=== PATIENT | female | born 1985 | race American Indian/Alaskan Native ===

== ENCOUNTER 2017-04-25 00:57 | Emergency (ER) | payer MEDICAID ==
[2017-04-25 02:11] LABS: Anion Gap 17 mmol/L; BUN/Creatinine Ratio 22; Blood Urea Nitrogen 13 mg/dL (7-17); Calcium 8.7 mg/dL (8.4-10.2); Carbon Dioxide 23 mmol/L (22-30); Chloride 103.7 mmol/L (98-107); Glucose 92 mg/dL (65-100); Sodium 140 mmol/L (137-145)
[2017-04-25 02:21] LABS: Basophils % (Auto) 0.6 % (0.0-1.8); Eosinophils % (Auto) 4.2 % (0.0-4.3); Hematocrit 41.8 % (30.3-42.9); Hemoglobin 13.7 gm/dl (10.1-14.3); Mean Corpuscular HGB Conc 33 % (30-34); Mean Corpuscular Hemoglobin 26 pg (28-32); Mean Corpuscular Volume 80 fl (79-97); Platelet Count 249 K/mm3 (140-440); Red Blood Count 5.25 M/mm3 (3.65-5.03); Red Cell Distribution Width 15.2 % (13.2-15.2); White Blood Count 11.6 K/mm3 (4.5-11.0)
--- NOTE | 2017-04-25 04:15 | XRay Report ---
FINAL REPORT PROCEDURE: XR CHEST ROUTINE 2V TECHNIQUE: PA and lateral chest radiographs were obtained. CPT 89915 HISTORY: cough, JJ, Consent signed COMPARISON: No prior studies are available for comparison. FINDINGS: Heart: Normal. Mediastinum/Vessels: Normal. Lungs/Pleural space: Normal. Bony thorax: No acute osseous abnormality. Other: IMPRESSION: Normal examination.
[2017-04-25] MEDS ORDERED: PHENERGAN/CODEINE 6.25-10 MG/5ML PO ONE (04:52)
[2017-04-25] MEDS ORDERED: TORADOL IM ONE (04:52)
[2017-04-25] MEDS ORDERED: DUONEB *Not for PRN Use IH ONE (05:25)
--- NOTE | 2017-04-25 06:38 | Emergency Department Report ---
Minor Respiratory - HPI Chief Complaint: Upper Respiratory Infection Stated Complaint: SOB/CP ED Review of Systems ROS: Stated complaint: SOB/CP Other details as noted in HPI ED Past Medical Hx - Past Medical History Previous Medical History?: Yes Hx Hypertension: No Hx Congestive Heart Failure: No Hx Diabetes: No Hx Deep Vein Thrombosis: No Hx Renal Disease: No Hx Sickle Cell Disease: No Hx Seizures: No Hx Asthma: No Hx COPD: No Hx HIV: No Additional medical history: Hypoglycemia - Surgical History Past Surgical History?: No Additional Surgical History: Obesity - Social History Smoking Status: Current Every Day Smoker Substance Use Type: Alcohol - Medications Home Medications: Home Medications Medication Instructions Recorded Confirmed Last Taken Type Penicillin Vk [Veetids TAB] 250 mg PO QID #40 tablet 10/14/14 Unknown Rx ALBUTEROL Inhaler [ProAir HFA 2 puff IH QID PRN #1 inhalation 08/01/15 Unknown Rx Inhaler] Acetamin/Codeine 120-12Mg/5 ml 5 ml PO TID PRN #30 ml 08/01/15 Unknown Rx [Tylenol/Codeine] Azithromycin [Zithromax Z-MARISOL] 250 mg PO DAILY #6 tab 08/01/15 Unknown Rx Prednisone [predniSONE 10 mg 10 mg PO .TAPER #1 tab.ds.pk 08/01/15 Unknown Rx (6-Day Pack, 21 Tabs)] ALBUTEROL Inhaler [Proair] 1 puff IH TID PRN #1 inha 04/25/17 Unknown Rx Azithromycin [Zithromax Z-MARISOL] 250 mg PO QAM #1 pack 04/25/17 Unknown Rx methylPREDNISolone [Medrol] 4 mg PO QAM #1 tab.ds.pk 04/25/17 Unknown Rx Minor Respiratory Exam - Exam General: Vital signs noted. No distress. Alert and acting appropriately. Neurologic: Alert and oriented, no deficits. Musculoskeletal: Unremarkable. ED Course Vital Signs 04/25/17 04/25/17 00:57 05:32 Temperature 98.4 F Pulse Rate 75 Respiratory 20 18 Rate Blood Pressure 129/87 [Right] O2 Sat by Pulse 99 Oximetry ED Medical Decision Making - Lab Data Result diagrams: 04/25/17 01:32 04/25/17 01:32 Critical care attestation.: If time is entered above; I have spent that time in minutes in the direct care of this critically ill patient, excluding procedure time. ED Disposition Disposition: DC-01 TO HOME OR SELFCARE Condition: Stable Instructions: Acute Bronchitis (ED) Prescriptions: ALBUTEROL Inhaler [Proair] 1 puff IH TID PRN #1 inha PRN Reason: Shortness Of Breath Azithromycin [Zithromax Z-MARISOL] 250 mg PO QAM #1 pack methylPREDNISolone [Medrol] 4 mg PO QAM #1 tab.ds.pk Referrals: PRIMARY CARE, [Primary Care Provider] - 3-5 Days Forms: Work/School Release Form(ED)
[2017-04-25 06:43] VITALS: BP 121/75
== END 2017-04-25 06:42 | disposition home or self-care (01) ==
LOC: ED 00:57
DX: J06.9 Acute upper respiratory infection, unspecified (principal); F17.200 Nicotine dependence, unspecified, uncomplicated
CPT/HCPCS: 36415; 71020; 80048; 84484; 84703; 85025; 93005; 93010; 96372; 99284; J1885

== ENCOUNTER 2018-08-25 03:19 | Emergency (ER) | payer MEDICAID ==
[2018-08-25 03:30] VITALS: BP 142/99
[2018-08-25] MEDS ORDERED: IBUPROFEN PO ONE (04:28)
[2018-08-25] MEDS ORDERED: BENADRYL PO ONE ×2 (04:28→04:35)
[2018-08-25] MEDS ORDERED: TYLENOL #3 PO ONE (04:28)
[2018-08-25] MEDS ORDERED: FUL-GLO OP ONE ×2 (04:28→04:35)
[2018-08-25] MEDS ORDERED: TETRACAINE 0.5% OU ONE (04:28)
[2018-08-25] MEDS ORDERED: TETRACAINE 0.5% ONE (04:34)
[2018-08-25] MEDS ORDERED: TYLENOL #3 ONE (04:35)
[2018-08-25] MEDS ORDERED: IBUPROFEN ONE (04:35)
--- NOTE | 2018-08-25 05:58 | Emergency Department Report ---
Eye Injury/Foreign Body - HPI Eye Location: Left Severity: Moderate Tetanus Status: Up to Date Eye Symptoms: Eye Pain: Yes, Blurred Vision: No, Eye Redness: Yes, Grinding/Hammering Metal: No, Used Eye Protection: No, Contact Lens Use: Yes, Recalls Injury: No, Photophobia: Yes Other History: Patient 33-year-old female who presents for left eye pain 2 days after removing contact is for irritation now has mild swelling redness and burning itching visual acuity 20/40 bilaterally without contacts itching clear drainage ED Review of Systems ROS: Stated complaint: EYE PAIN Other details as noted in HPI Constitutional: denies: chills, fever Eyes: eye pain, eye discharge. denies: vision change ENT: denies: ear pain, throat pain Respiratory: denies: cough, shortness of breath, wheezing Cardiovascular: denies: chest pain, palpitations Endocrine: no symptoms reported Gastrointestinal: denies: abdominal pain, nausea, diarrhea Genitourinary: denies: urgency, dysuria, discharge Musculoskeletal: denies: back pain, joint swelling, arthralgia Skin: denies: rash, lesions Neurological: denies: headache, weakness, paresthesias Psychiatric: denies: anxiety, depression Hematological/Lymphatic: denies: easy bleeding, easy bruising ED Past Medical Hx - Past Medical History Previous Medical History?: Yes Hx Hypertension: No Hx Congestive Heart Failure: No Hx Diabetes: No Hx Deep Vein Thrombosis: No Hx Renal Disease: No Hx Sickle Cell Disease: No Hx Seizures: No Hx Asthma: No Hx COPD: No Hx HIV: No Additional medical history: Hypoglycemia - Surgical History Past Surgical History?: No Additional Surgical History: Obesity - Social History Smoking Status: Current Every Day Smoker Substance Use Type: Alcohol - Medications Home Medications: Home Medications Medication Instructions Recorded Confirmed Last Taken Type Penicillin Vk [Veetids TAB] 250 mg PO QID #40 tablet 10/14/14 Unknown Rx ALBUTEROL Inhaler (OR & NICU) 2 puff IH QID PRN #1 inhalation 08/01/15 Unknown Rx [ProAir HFA Inhaler] Acetamin/Codeine 120-12Mg/5 ml 5 ml PO TID PRN #30 ml 08/01/15 Unknown Rx [Tylenol/Codeine] Azithromycin [Zithromax Z-MARISOL] 250 mg PO DAILY #6 tab 08/01/15 Unknown Rx Prednisone [predniSONE 10 mg 10 mg PO .TAPER #1 tab.ds.pk 08/01/15 Unknown Rx (6-Day Pack, 21 Tabs)] ALBUTEROL Inhaler (OR & NICU) 1 puff IH TID PRN #1 inha 04/25/17 Unknown Rx [Proair] Azithromycin [Zithromax Z-MARISOL] 250 mg PO QAM #1 pack 04/25/17 Unknown Rx methylPREDNISolone [Medrol] 4 mg PO QAM #1 tab.ds.pk 04/25/17 Unknown Rx Cetirizine HCl [ZyrTEC] 10 mg PO DAILY #30 capsule 08/25/18 Unknown Rx Ibuprofen 800 mg PO TID PRN #30 tablet 08/25/18 Unknown Rx Ofloxacin 0.3% [Ocuflox] 2 drops OP Q3H 10 Days #1 bottle 08/25/18 Unknown Rx Eye Injury Exam - Exam General: Exam patient is PERRLA EOMI conjunctivae injected there is generalized erythema mild eyelid swelling to drainage visual acuity is 20/40 bilaterally IP 16 mmHg. Gal-Pen exam with tetracaine first history of mild left coronary abrasion eyelid inverted and is well irrigated. No foreign bodies ED Course Vital Signs 08/25/18 03:25 Temperature 98.6 F Pulse Rate 90 Respiratory 18 Rate Blood Pressure 142/99 O2 Sat by Pulse 96 Oximetry ED Medical Decision Making - Medical Decision Making This is conjunctivitis with corneal abrasion plan Cipro drops follow up in ophthalmology today ibuprofen when necessary pain Zyrtec for itching patient will return to the emergency department should symptoms worsen patient verbalized agreement and understanding with discharge plan patient will DC to home in stable condition at this time Critical care attestation.: If time is entered above; I have spent that time in minutes in the direct care of this critically ill patient, excluding procedure time. ED Disposition Clinical Impression: Corneal abrasion Qualifiers: Encounter type: initial encounter Laterality: left Qualified Code(s): S05.02XA - Injury of conjunctiva and corneal abrasion without foreign body, left eye, initial encounter Conjunctivitis Qualifiers: Conjunctivitis type: acute Acute conjunctivitis type: bacterial Laterality: left Qualified Code(s): H10.32 - Unspecified acute conjunctivitis, left eye Disposition: DC-01 TO HOME OR SELFCARE Is pt being admited?: No Does the pt Need Aspirin: No Condition: Stable Instructions: Corneal Abrasion (ED), Conjunctivitis (ED) Prescriptions: Cetirizine HCl [ZyrTEC] 10 mg PO DAILY #30 capsule Ibuprofen 800 mg PO TID PRN #30 tablet PRN Reason: pain Ofloxacin 0.3% [Ocuflox] 2 drops OP Q3H 10 Days #1 bottle Referrals: KEMAL CHARLES MD [Staff Physician] - 3-5 Days Forms: Work/School Release Form(ED) Time of Disposition: 06:04
== END 2018-08-25 06:50 | disposition home or self-care (01) ==
LOC: ED 03:19
DX: S05.02XA Injury of conjunctiva and corneal abrasion without foreign body, left eye, initial encounter (principal); H10.32 Unspecified acute conjunctivitis, left eye; F17.200 Nicotine dependence, unspecified, uncomplicated; X58.XXXA Exposure to other specified factors, initial encounter; Y93.89 Activity, other specified; Y92.89 Other specified places as the place of occurrence of the external cause; Y99.8 Other external cause status

== ENCOUNTER 2019-01-07 14:41 | Emergency (ER) | payer MEDICAID ==
--- NOTE | 2019-01-07 15:00 | Emergency Department Report ---
Blank Doc - Documentation Documentation: This is a 33-year-old female that presents with chest pain and SOB. Has palpa tions. This initial assessment/diagnostic orders/clinical plan/treatment(s) is/are subject to change based on patient's health status, clinical progression and re- assessment by fellow clinical providers in the ED. Further treatment and workup at subsequent clinical providers discretion. Patient/guardians urged not to elope from the ED as their condition may be serious if not clinically assessed and managed. Initial orders include: 1- Patient sent to [facility] for further evaluation and treatment 2- EKG 3- CXR 4- labs
[2019-01-07 15:03] VITALS: BP 128/77
--- NOTE | 2019-01-07 15:28 | XRay Report ---
ROUTINE CHEST, TWO VIEWS: HISTORY: chest pain. The trachea, heart, mediastinal contour, lung russell and bony thorax are unremarkable. No change since 04/25/17. IMPRESSION: Unremarkable chest x-ray.
[2019-01-07 17:03] LABS: Basophils % (Auto) 0.4 % (0.0-1.8); Eosinophils # (Auto) 0.5 K/mm3 (0.0-0.4); Eosinophils % (Auto) 7.1 % (0.0-4.3); Hematocrit 44.8 % (30.3-42.9); Hemoglobin 14.4 gm/dl (10.1-14.3); Lymphocytes # (Auto) 2.4 K/mm3 (1.2-5.4); Lymphocytes % (Auto) 32.4 % (13.4-35.0); Mean Corpuscular HGB Conc 32 % (30-34); Mean Corpuscular Volume 84 fl (79-97); Monocytes # (Auto) 0.5 K/mm3 (0.0-0.8); Monocytes % (Auto) 6.4 % (0.0-7.3); Platelet Count 250 K/mm3 (140-440); Red Blood Count 5.34 M/mm3 (3.65-5.03); Red Cell Distribution Width 15.4 % (13.2-15.2)
--- NOTE | 2019-01-07 17:32 | Emergency Department Report ---
ED General Adult HPI - General Chief complaint: Arrhythmia/Palpitations Stated complaint: HBP/HEADACHE/SOB/WEAK Time Seen by Provider: 01/07/19 14:58 Source: patient Mode of arrival: Ambulatory Limitations: No Limitations - History of Present Illness Initial comments: 33-year-old -[place] female presents to the emergency room for headache, shortness of breath, chest tightness, right side of face to occipital tightness palpitations and lightheadedness facial tingling vital lateral arms and hand tingling for 3 days. Patient states that her blood pressure was elevated at her LOCAL DRIVER and alert a heart period patient was not started on any blood pressure medications at that time. Also complains of vaginal bleeding for the last 2 weeks. He reports that the headache feels like a band across her his chest wraps around to the back of her head. Patient admits that she has a history of anxiety but is never been on any medication. She reports that she often pulled her hair on the right side of her head in her right leg with tremble when she is feeling anxious. Onset/Timin -: days(s) Location: head, chest Quality: sharp Consistency: intermittent Improves with: rest Associated Symptoms: chest pain, diaphoresis, headaches, shortness of breath, weakness Treatments Prior to Arrival: other (physical juice) - Related Data Previous Rx's Medication Instructions Recorded Last Taken Type Penicillin Vk [Veetids TAB] 250 mg PO QID #40 tablet 10/14/14 Unknown Rx ALBUTEROL Inhaler (OR & NICU) 2 puff IH QID PRN #1 inhalation 08/01/15 Unknown Rx [ProAir HFA Inhaler] Acetamin/Codeine 120-12Mg/5 ml 5 ml PO TID PRN #30 ml 08/01/15 Unknown Rx [Tylenol/Codeine] Azithromycin [Zithromax Z-MARISOL] 250 mg PO DAILY #6 tab 08/01/15 Unknown Rx Prednisone [predniSONE 10 mg 10 mg PO .TAPER #1 tab.ds.pk 08/01/15 Unknown Rx (6-Day Pack, 21 Tabs)] ALBUTEROL Inhaler (OR & NICU) 1 puff IH TID PRN #1 inha 04/25/17 Unknown Rx [Proair] Azithromycin [Zithromax Z-MARISOL] 250 mg PO QAM #1 pack 04/25/17 Unknown Rx methylPREDNISolone [Medrol] 4 mg PO QAM #1 tab.ds.pk 04/25/17 Unknown Rx Cetirizine HCl [ZyrTEC] 10 mg PO DAILY #30 capsule 08/25/18 Unknown Rx Ibuprofen [Ibuprofen 800] 800 mg PO TID PRN #30 tablet 08/25/18 Unknown Rx Ofloxacin 0.3% [Ocuflox 0.3% opth] 2 drops OP Q3H 10 Days #1 bottle 08/25/18 Unknown Rx hydrOXYzine HCL [Atarax] 25 mg PO Q6HR PRN #15 tablet 01/07/19 Unknown Rx medroxyPROGESTERone ACETATE 10 mg PO QDAY 10 Days #10 tablet 01/07/19 Unknown Rx [Provera] Allergies Allergy/AdvReac Type Severity Reaction Status Date / Time epinephrine AdvReac Anaphylaxis Verified 10/14/14 09:55 ED Review of Systems ROS: Stated complaint: HBP/HEADACHE/SOB/WEAK Other details as noted in HPI Comment: All other systems reviewed and negative Constitutional: diaphoresis, weakness Respiratory: shortness of breath Cardiovascular: chest pain Gastrointestinal: denies: nausea, vomiting Neurological: headache, weakness Psychiatric: anxiety ED Past Medical Hx - Past Medical History Hx Hypertension: No Hx Congestive Heart Failure: No Hx Diabetes: No Hx Deep Vein Thrombosis: No Hx Renal Disease: No Hx Sickle Cell Disease: No Hx Seizures: No Hx Asthma: No Hx COPD: No Hx HIV: No Additional medical history: Hypoglycemia - Surgical History Additional Surgical History: Obesity - Social History Smoking Status: Never Smoker Substance Use Type: None - Medications Home Medications: Home Medications Medication Instructions Recorded Confirmed Last Taken Type Penicillin Vk [Veetids TAB] 250 mg PO QID #40 tablet 10/14/14 Unknown Rx ALBUTEROL Inhaler (OR & NICU) 2 puff IH QID PRN #1 inhalation 08/01/15 Unknown Rx [ProAir HFA Inhaler] Acetamin/Codeine 120-12Mg/5 ml 5 ml PO TID PRN #30 ml 08/01/15 Unknown Rx [Tylenol/Codeine] Azithromycin [Zithromax Z-MARISOL] 250 mg PO DAILY #6 tab 08/01/15 Unknown Rx Prednisone [predniSONE 10 mg 10 mg PO .TAPER #1 tab.ds.pk 08/01/15 Unknown Rx (6-Day Pack, 21 Tabs)] ALBUTEROL Inhaler (OR & NICU) 1 puff IH TID PRN #1 inha 04/25/17 Unknown Rx [Proair] Azithromycin [Zithromax Z-MARISOL] 250 mg PO QAM #1 pack 04/25/17 Unknown Rx methylPREDNISolone [Medrol] 4 mg PO QAM #1 tab.ds.pk 04/25/17 Unknown Rx Cetirizine HCl [ZyrTEC] 10 mg PO DAILY #30 capsule 08/25/18 Unknown Rx Ibuprofen [Ibuprofen 800] 800 mg PO TID PRN #30 tablet 08/25/18 Unknown Rx Ofloxacin 0.3% [Ocuflox 0.3% opth] 2 drops OP Q3H 10 Days #1 bottle 08/25/18 Unknown Rx hydrOXYzine HCL [Atarax] 25 mg PO Q6HR PRN #15 tablet 01/07/19 Unknown Rx medroxyPROGESTERone ACETATE 10 mg PO QDAY 10 Days #10 tablet 01/07/19 Unknown Rx [Provera] ED Physical Exam - General Limitations: No Limitations General appearance: alert, in no apparent distress - Head Head exam: Present: atraumatic, normocephalic - Eye Eye exam: Present: normal appearance - ENT ENT exam: Present: mucous membranes moist - Neck Neck exam: Present: normal inspection - Respiratory Respiratory exam: Present: normal lung sounds bilaterally. Absent: respiratory distress - Cardiovascular Cardiovascular Exam: Present: regular rate, normal rhythm. Absent: systolic murmur, diastolic murmur, rubs, gallop - GI/Abdominal GI/Abdominal exam: Present: soft, normal bowel sounds - Extremities Exam Extremities exam: Present: normal inspection - Back Exam Back exam: Present: normal inspection - Neurological Exam Neurological exam: Present: alert, oriented X3 - Psychiatric Psychiatric exam: Present: normal affect, normal mood - Skin Skin exam: Present: warm, dry, intact, normal color. Absent: rash ED Course Vital Signs 01/07/19 01/07/19 15:00 17:03 Temperature 98.2 F Pulse Rate 81 Respiratory 14 16 Rate Blood Pressure 128/77 [Left] O2 Sat by Pulse 97 Oximetry ED Medical Decision Making - Lab Data Result diagrams: 01/07/19 15:13 - Medical Decision Making 33-year-old female comes in for chest tightness, shortness of breath, tingling in hands, headache. EKG normal troponins 2 within normal limits labs are within normal limits. Urinalysis is stable. Patient be discharged home to follow up with her primary care provider. Will place patient on hydroxyzine and Provera for menorrhagia. Patient is to follow up with her primary care provider or LOCAL DRIVER provider.. Critical care attestation.: If time is entered above; I have spent that time in minutes in the direct care of this critically ill patient, excluding procedure time. ED Disposition Clinical Impression: Anxiety, Menorrhagia Disposition: - TO HOME OR SELFCARE Is pt being admited?: No Does the pt Need Aspirin: No Condition: Stable Instructions: Menorrhagia (ED), Anxiety (ED) Additional Instructions: Please take medications as prescribed. It is very important for you to follow u p with her primary care provider and your primary LOCAL DRIVER provider in the next 2- 3 days. Prescriptions: hydrOXYzine HCL [Atarax] 25 mg PO Q6HR PRN #15 tablet PRN Reason: Anxiety medroxyPROGESTERone ACETATE [Provera] 10 mg PO QDAY 10 Days #10 tablet Referrals: KERRY ROJAS MD [Primary Care Provider] - 3-5 Days Your, Providers [Other] - 3-5 Days
[2019-01-07 17:47] LABS: HCG Qualitative,Urine Negative (Negative)
[2019-01-07 17:49] LABS: Bacteria,Urine 1+ /HPF (Negative); Bilirubin,Urine NEG (Negative); Blood,Urine LG (Negative); Color,Urine Amber (Yellow); Mucus,Urine 3+ /HPF
[2019-01-07] MEDS ORDERED: TYLENOL PO ONE (18:56)
[2019-01-07 19:17] LABS: Alanine Aminotransferase 8 units/L (7-56); Albumin 3.8 g/dL (3.9-5); BUN/Creatinine Ratio 17; Blood Urea Nitrogen 12 mg/dL (7-17); Hemolysis Index 14
== END 2019-01-07 19:15 | disposition home or self-care (01) ==
LOC: ED 14:41
DX: F41.9 Anxiety disorder, unspecified (principal); N92.0 Excessive and frequent menstruation with regular cycle; R07.89 Other chest pain; R06.02 Shortness of breath; R20.2 Paresthesia of skin; R51 Headache; Z88.8 Allergy status to other drugs, medicaments and biological substances; Z79.899 Other long term (current) drug therapy
CPT/HCPCS: 36415; 71046; 80053; 81001; 81025; 84443; 84484; 85025; 93005; 93010